=== PATIENT | male | born 1955 | race Caucasian/White ===

== ENCOUNTER → 2017-02-26 | Outpatient (CLI) | payer BC | END | disposition home or self-care (01) | LOC: GMAB 10:42 | PROVIDERS: ATTEND Family Medicine | DX: Z00.01 Encounter for general adult medical examination with abnormal findings (principal) ==

== ENCOUNTER → 2018-01-17 | Outpatient (CLI) | payer BC | LOC: GMAB 10:49 | PROVIDERS: ATTEND Family Medicine | DX: Z00.01 Encounter for general adult medical examination with abnormal findings (principal) ==

== ENCOUNTER → 2018-05-07 | Outpatient (CLI) | payer BC | LOC: GMAE 10:56 | PROVIDERS: ATTEND Family Medicine | DX: R19.7 Diarrhea, unspecified (principal) ==

== ENCOUNTER → 2018-05-07 | Outpatient (CLI) | payer BC | LOC: LAB.O 13:15 | PROVIDERS: ATTEND Family Medicine | DX: R19.7 Diarrhea, unspecified (principal) ==

== ENCOUNTER → 2020-04-04 | Outpatient (CLI) | payer MEDICARE, OTHER | LOC: GMAE 11:02 | PROVIDERS: ATTEND Family Medicine | DX: Z12.5 Encounter for screening for malignant neoplasm of prostate (principal); I10 Essential (primary) hypertension; E78.2 Mixed hyperlipidemia | CPT/HCPCS: 84443; G0103 ==

== ENCOUNTER → 2020-04-06 | Outpatient (CLI) | payer MEDICARE, OTHER ==
--- NOTE | 2020-04-07 16:09 | US ---
EXAM DESCRIPTION: Soft Tissue,Extremity: ULTRASOUND. CLINICAL HISTORY: 65 years Male LOCALIZED SWELLING MASS AND LUMP COMPARISON: None Available. TECHNIQUE: Transcutaneous scanning: Davis-scale and Doppler modes. FINDINGS: Scanning of the palpable mass in the right arm. Circumscribed hyperechoic mostly homogeneous mass displacing muscle fibers. No hypervascular. Dimensions are 5.9 x 3.7 x 4.3 cm. No fluid collection or distinct cyst. No large calcifications. IMPRESSION: 1. Possible lipoma between muscle groups or intramuscular. No cysts or fluid collections. If these findings are inconsistent with clinical findings, consider MRI scan without and with gadolinium IV contrast. Electronically signed by: Lam Clark MD 04/07/2020 4:07 PM CDT
== END ==
LOC: US 13:30
PROVIDERS: ATTEND Family Medicine
DX: R22.31 Localized swelling, mass and lump, right upper limb (principal)

== ENCOUNTER 2020-08-02 09:00 | Day surgery (SDC) | payer MEDICARE, OTHER ==
--- NOTE | 2020-07-29 09:44 | RAD ---
EXAM DESCRIPTION: Chest,2 Views CLINICAL HISTORY: Preop for lesion removal from right bicep COMPARISON: Chest CT dated September 05, 2016 TECHNIQUE: Two-view radiograph of the chest FINDINGS: Cardiac silhouette shows normal heart size. Pulmonary vascularity is within normal limits. Lungs show no confluent infiltrates. No pleural effusion. No pneumothorax. Mild degenerative changes of the thoracic spine. IMPRESSION: No acute cardiopulmonary process. Electronically signed by: Leoncio Llanes MD 07/29/2020 9:42 AM [facility]
[~2020-08-02 09:00] MED LIST: LACTATED RINGERS 1,000 ML ONE
[2020-08-02] MEDS ORDERED: PROPOFOL 200 MG/20 ML VIAL IV ONE (09:01)
[2020-08-02] MEDS ORDERED: LIDOCAINE 1% 10 ML VIAL INJ ONE (09:01)
[2020-08-02] MEDS ORDERED: DEXAMETHASONE INJ 10 MG/ML VIAL IV ONE (09:01)
[2020-08-02] MEDS ORDERED: MIDAZOLAM INJ 2 MG/2 ML VIAL IV ONE ×2 (10:22→10:37)
[2020-08-02] MEDS ORDERED: DEXMEDETOMIDINE HCL 200 MCG/2 ML INJ IV ONE (10:22)
[2020-08-02] MEDS ORDERED: KETAMINE HCL 100 MG/ML VIAL IV ONE (10:22)
[2020-08-02] MEDS ORDERED: fentaNYL CITRATE INJ 50 MCG/ML 2 ML AMP IV ONE (10:23)
[2020-08-02] MEDS ORDERED: SODIUM BICARBONATE VIAL 50 MEQ/50 ML VIAL IV ONE (10:30)
[2020-08-02] MEDS ORDERED: LIDOCAINE 1% 50 ML VIAL INJ ONE (10:30)
[2020-08-02] MEDS ORDERED: MORPHINE SULFATE INJ 10 MG/ML VIAL ONE (11:53)
[2020-08-02 12:08] VITALS: O2SAT 95
[2020-08-02] MEDS ORDERED: ACETAMINOPHEN W/COD #3 TAB 1 EA TAB ONE (12:09)
[2020-08-02] MEDS ORDERED: ACETAMINOPHEN W/COD #3 TAB 1 EA TAB PO ONE (12:18)
--- NOTE | 2020-08-02 13:12 | OP ---
DATE OF PROCEDURE: 08/02/20 PREOPERATIVE DIAGNOSIS: 1. Intramuscular mass, right biceps. POSTOPERATIVE DIAGNOSIS: 1. Intramuscular mass, right biceps. PROCEDURE: 1. Excision of intramuscular mass, right biceps. SURGEON: Ugo Brody MD. GRAINING OPERATOR: None. ANESTHESIA: Local infiltration of 0.25% Marcaine with epinephrine and IV sedation by Anesthesia. INDICATION: The patient is a 65-year-old male with a mass in his right biceps and it is enlarged. He underwent an ultrasound which appeared to be an intramuscular lipoma. He was brought to the Surgical Suite today for excision of same. FINDINGS: Basically, the mass appeared to be a lipoma. It was basically at the base of the biceps with the biceps draped over it and it was just superficial to the humerus and superiorly was quite adherent to the periosteum of the humerus. It was 6.5 by 4.5 by 3.5 cm. Pathology is pending. DESCRIPTION OF PROCEDURE: After the patient was brought to the Surgical Suite and placed in supine position with the right arm on the arm table, IV sedation was given. The patient was prepped and a surgical time-out was taken. At this point, an incision was fashioned first with a marking pen and then local infiltration of anesthesia. The skin was then incised with the knife. Later in the procedure, it did have to be extended both superiorly and inferiorly, but mainly superiorly. The dissection was carried down through the skin and subcutaneous tissue using electrocautery and blunt dissection. Eventually, the biceps muscle was identified. The periosteum was divided in the direction of the fibers using blunt dissection. Blunt dissection was used to dissect down through the biceps. Finally, the fatty tissue was identified and using blunt dissection in the inferior aspect, superiorly and the medial and lateral aspects, it was all dissected free except for the superior aspect where it was adherent somewhat to the humeral periosteum. At this point, skin incision was lengthened to allow better access in the superior aspect. Eventually, this was removed. The final tissues were divided using electrocautery. Hemostasis was obtained with electrocautery. The specimen was sent for pathological evaluation. The wound was then irrigated with saline. Hemostasis was noted to be adequate. The biceps perimysium was approximated with interrupted 3-0 Vicryl sutures. The subcutaneous was approximated with 3-0 Vicryl sutures. The skin edges were approximated with 4-0 Nylon vertical mattress sutures. A sterile pressure dressing was applied. The patient was awakened and taken to the Ambulatory Unit in stable condition. Estimated blood loss was less than 50 mL. All sponge, needle and instrument counts were correct. #[id number] MTDD
[2020-08-02 13:39] VITALS: BP 88/50; TEMP 97.4
== END 2020-08-02 13:32 | disposition home or self-care (01) ==
LOC: AMB 09:00
PROVIDERS: ATTEND Surgery
DX: D17.21 Benign lipomatous neoplasm of skin and subcutaneous tissue of right arm (principal); I10 Essential (primary) hypertension; Z79.899 Other long term (current) drug therapy
CPT/HCPCS: 01710; 24073; 36415; 71046; 80048; 81001; 85025; J1100; J2250; J2270; J3010; J3490; J7120